=== PATIENT | male | born 1975 | race Caucasian/White ===

== ENCOUNTER 2017-01-11 12:33 | Inpatient (IN) | payer OTHER ==
[~2017-01-11] VITALS: Ht 185.4 cm; Wt 148.1 kg
[2017-01-11 14:03] LABS: HEMOGLOBIN 15.5 gm/dl (14.0-17.5); RED BLOOD COUNT 5.17 M/UL (4.20-5.50); WHITE BLOOD COUNT 6.2 K/UL (4.5-11.0)
[2017-01-11 14:27] LABS: BUN/CREATININE RATIO 16 (0-10)
[2017-01-11] MEDS ORDERED: LEVAQUIN500 MG PO (21:06)
[2017-01-12 07:46] LABS: HEMOGLOBIN 14.3 gm/dl (14.0-17.5); RED BLOOD COUNT 4.91 M/UL (4.20-5.50); WHITE BLOOD COUNT 6.6 K/UL (4.5-11.0)
[2017-01-12 08:06] LABS: BUN/CREATININE RATIO 17 (0-10)
[2017-01-13 08:10] LABS: HEMOGLOBIN 13.5 gm/dl (14.0-17.5); RED BLOOD COUNT 4.62 M/UL (4.20-5.50)
[2017-01-13 08:22] LABS: BUN/CREATININE RATIO 16 (0-10)
[2017-01-13] MEDS ORDERED: TESSALON PERLE100 MG PO (12:55)
[2017-01-13] MEDS ORDERED: CEFDINIR300 MG PO (12:57)
== END 2017-01-13 13:40 | disposition home or self-care (01) | DRG 193 ==
LOC: ER1 12:33 → ZEROF 15:15 → M/S 15:15
PROVIDERS: Physician Assistant Medical; ADMIT Emergency Medicine
DX: J18.9 Pneumonia, unspecified organism (principal); J96.01 Acute respiratory failure with hypoxia; E87.2 Acidosis; Z68.41 Body mass index [BMI] 40.0-44.9, adult; E66.9 Obesity, unspecified; G47.33 Obstructive sleep apnea (adult) (pediatric); R73.9 Hyperglycemia, unspecified; R73.01 Impaired fasting glucose; Z79.2 Long term (current) use of antibiotics
CPT/HCPCS: 36415; 36600; 71020; 80048; 80053; 82803; 83036; 83605; 83735; 85025; 87040; 87070; 87205; 87278; 87899; 94640; 94664; 96374; 96375; 99284; J0456; J0696; J2930; J7030; J7050

== ENCOUNTER 2021-08-29 17:40 | Inpatient (IN) | payer OTHER ==
[~2021-08-29] VITALS: Ht 185.4 cm; Wt 154.2 kg
[~2021-08-29 17:40] MED LIST: CEFDINIR300 MG PO; FLEXERIL 10 MG10 MG PO; LEVAQUIN500 MG PO; NAPROSYN500 MG PO; TESSALON PERLE100 MG PO
[2021-08-29 18:32] LABS: HEMOGLOBIN 14.7 gm/dl (14.0-17.5); RED BLOOD COUNT 4.82 M/UL (4.20-5.50); WHITE BLOOD COUNT 4.5 K/UL (4.5-11.0)
[2021-08-29 19:09] LABS: BUN/CREATININE RATIO 12 (0-10)
[2021-08-30 06:42] LABS: HEMOGLOBIN 13.9 gm/dl (14.0-17.5); RED BLOOD COUNT 4.73 M/UL (4.20-5.50)
[2021-08-30 06:48] LABS: WHITE BLOOD COUNT 2.1 K/UL (4.5-11.0)
[2021-08-30 08:16] LABS: BUN/CREATININE RATIO 19 (0-10)
[2021-08-31 03:45] LABS: HEMOGLOBIN 14.2 gm/dl (14.0-17.5); RED BLOOD COUNT 4.65 M/UL (4.20-5.50)
[2021-08-31 03:46] LABS: WHITE BLOOD COUNT 6.1 K/UL (4.5-11.0)
[2021-08-31 04:06] LABS: BUN/CREATININE RATIO 15 (0-10)
[2021-09-01 06:01] LABS: RED BLOOD COUNT 4.61 M/UL (4.20-5.50); WHITE BLOOD COUNT 5.7 K/UL (4.5-11.0)
[2021-09-01 06:52] LABS: BUN/CREATININE RATIO 14 (0-10)
[2021-09-02 06:45] LABS: HEMOGLOBIN 13.6 gm/dl (14.0-17.5); RED BLOOD COUNT 4.47 M/UL (4.20-5.50)
[2021-09-02 06:50] LABS: WHITE BLOOD COUNT 3.6 K/UL (4.5-11.0)
[2021-09-02 07:24] LABS: BUN/CREATININE RATIO 17 (0-10)
[2021-09-03 08:45] LABS: HEMOGLOBIN 12.9 gm/dl (14.0-17.5); RED BLOOD COUNT 4.25 M/UL (4.20-5.50)
[2021-09-03 09:32] LABS: BUN/CREATININE RATIO 20 (0-10)
--- NOTE | 2021-09-05 00:25 | NUR ---
Call place to hospitalist head control clerk Dr Sarmiento related to patients bradycardia, HR 30-40's, BP stable 140s/70-80s O2 saturation 90s, patient asymptomatic. New orders received for CPAP and EKG, reults called to Dr Sarmiento , continue to monitor no further orders at this time. Pateint remains stable with no acute distress noted.
--- NOTE | 2021-09-05 05:58 | NUR ---
Patient reamins bradycardic, and asymptomatic no acute distress noted.
[2021-09-05 06:20] LABS: HEMOGLOBIN 13.3 gm/dl (14.0-17.5); RED BLOOD COUNT 4.39 M/UL (4.20-5.50)
[2021-09-05 06:21] LABS: WHITE BLOOD COUNT 9.1 K/UL (4.5-11.0)
[2021-09-05 06:44] LABS: BUN/CREATININE RATIO 23 (0-10)
[2021-09-06 08:47] LABS: HEMOGLOBIN 14.2 gm/dl (14.0-17.5); RED BLOOD COUNT 4.72 M/UL (4.20-5.50); WHITE BLOOD COUNT 11.1 K/UL (4.5-11.0)
[2021-09-06] MEDS ORDERED: PROVENTIL HFA6.7 GM INH (09:16)
[2021-09-06] MEDS ORDERED: DECADRON6 MG PO (09:16)
[2021-09-06 10:12] LABS: BUN/CREATININE RATIO 21 (0-10)
== END 2021-09-06 11:13 | disposition home or self-care (01) | DRG 177 ==
LOC: ER1 17:40 → CDU 21:13 → MED SURG 4 21:13
PROVIDERS: Internal Medicine; Student in an Organized Health Care Education/Training Program; ADMIT Internal Medicine Infectious Disease
PROC: 8E0ZXY6 Isolation (ICD-10-PCS; principal; 2021-08-29)
PROC: XW033E5 Introduction of Remdesivir Anti-infective into Peripheral Vein, Percutaneous Approach, New Technology Group 5 (ICD-10-PCS; 2021-08-29)
PROC: 3E0333Z Introduction of Anti-inflammatory into Peripheral Vein, Percutaneous Approach (ICD-10-PCS; 2021-09-01)
PROC: XW0DXM6 Introduction of Baricitinib into Mouth and Pharynx, External Approach, New Technology Group 6 (ICD-10-PCS; 2021-09-02)
DX: U07.1 COVID-19 (principal); J12.82 Pneumonia due to coronavirus disease 2019; J96.01 Acute respiratory failure with hypoxia; J15.9 Unspecified bacterial pneumonia; J98.11 Atelectasis; M62.82 Rhabdomyolysis; E66.2 Morbid (severe) obesity with alveolar hypoventilation; B34.9 Viral infection, unspecified; F41.9 Anxiety disorder, unspecified; I49.3 Ventricular premature depolarization; I10 Essential (primary) hypertension; Z99.81 Dependence on supplemental oxygen; Z23 Encounter for immunization; Z79.899 Other long term (current) drug therapy
CPT/HCPCS: 36415; 36600; 71045; 80048; 80053; 82550; 82553; 82728; 82803; 83615; 83874; 84484; 85025; 85379; 86140; 93005; 94640; 94664; 94760; 96365; 96366; 96372; 96375; 96376; 99285; G0378; J0456; J0696; J1100; J1650; J2405; J7030; Q0177; U0002